=== PATIENT | male | born 1940 | race Caucasian/White ===

== ENCOUNTER → 2019-04-14 17:36 | Outpatient (CLI) | payer MEDICARE, BC, SELFPAY ==
[2019-04-14 19:22] LABS: Prostate Specific Antigen 4.66 ng/mL (0.10-4.00)
== END ==
PROVIDERS: PCP Internal Medicine; Referring Provider Urology; Visit Provider Urology
DX: N40.1 Benign prostatic hyperplasia with lower urinary tract symptoms (principal); R97.20 Elevated prostate specific antigen [PSA]
CPT/HCPCS: 36415; 84153

== ENCOUNTER → 2019-08-29 09:57 | Outpatient (CLI) | payer MEDICARE, BC, SELFPAY ==
[2019-08-29 11:34] LABS: Add Manual Diff / Slide Review NO; Basophils Absolute Auto 100 /uL (0-100); Basophils Percent Auto 0.9 % (0-2); Eosinophils Absolute Auto 100 /uL (0-450); Eosinophils Percent Auto 1.2 % (2-4); Hematocrit 41.2 % (41-53); Hemoglobin 14.3 g/dL (13.5-17.5); Lymphocytes Absolute Auto 1300 /uL (1100-4500); Mean Corpuscular HGB Conc 34.7 % (30-36); Mean Corpuscular Hemoglobin 32.7 PG (26-34); Monocytes Absolute Auto 600 /uL (0-900); Monocytes Percent Auto 8.7 % (3-14); Neutrophils Absolute Auto 4600 /uL (1500-7000); Neutrophils Percent Auto 69.2 % (50-75); Platelet Count 164 X10^3/uL (150-400); Red Blood Cell Count 4.38 X10^6/uL (4.5-5.9); Red Cell Distribution Width 13.3 % (11.6-14.8); White Blood Cell Count 6.6 X10^3/uL (4.5-11.0)
[2019-08-29 12:20] LABS: Alanine Aminotransferase 20 IU/L (<50); Albumin 4.2 g/dL (3.5-5.0); Alkaline Phosphatase 51 U/L (38-126); Aspartate Aminotransferase 35 IU/L (17-59); BUN Creatinine Ratio 17.6 (6-22); Bilirubin Total 0.8 mg/dL (0.2-1.3); Blood Urea Nitrogen 19 mg/dL (9-20); Calcium 9.5 mg/dL (8.4-10.2); Carbon Dioxide 25 mmol/L (22-32); Chloride 101 mmol/L (98-107); Cholesterol 139 mg/dL (140-199); Estimated Glomerular Filt Rate > 60.0 mL/min (>60); Globulin 2.1 g/dL (1.7-4.1); Glucose 92 mg/dL (80-110); HDL Cholesterol 56 mg/dL (40-60); HEMOLYSIS < 15 (0-50); LDL Cholesterol Calculated 51 mg/dL (<100); Potassium 4.3 mmol/L (3.4-5.1); Sodium 135 mmol/L (137-145); Total Protein 6.3 g/dL (6.3-8.2); Triglycerides 159 mg/dL (35-150)
== END ==
PROVIDERS: PCP Internal Medicine; Referring Provider Internal Medicine; Visit Provider Internal Medicine
DX: Z13.6 Encounter for screening for cardiovascular disorders (principal); I10 Essential (primary) hypertension; Z12.11 Encounter for screening for malignant neoplasm of colon
CPT/HCPCS: 36415; 80053; 80061; 85025

== ENCOUNTER → 2019-08-31 15:39 | Outpatient (CLI) | payer MEDICARE, BC, SELFPAY ==
[2019-08-31 19:05] LABS: Occult Blood 1 Negative (Negative); Occult Blood 2 Negative (Negative); Occult Blood 3 Negative (Negative)
== END ==
PROVIDERS: PCP Internal Medicine; Referring Provider Internal Medicine; Visit Provider Internal Medicine
DX: I10 Essential (primary) hypertension (principal); Z12.11 Encounter for screening for malignant neoplasm of colon; Z13.6 Encounter for screening for cardiovascular disorders
CPT/HCPCS: 82270

== ENCOUNTER → 2019-10-13 13:44 | Outpatient (CLI) | payer MEDICARE, BC, SELFPAY ==
[2019-10-13 16:25] LABS: Prostate Specific Antigen 2.06 ng/mL (0.10-4.00)
== END ==
PROVIDERS: PCP Internal Medicine; Referring Provider Urology; Visit Provider Urology
DX: R97.20 Elevated prostate specific antigen [PSA] (principal)
CPT/HCPCS: 36415; 84153

== ENCOUNTER → 2020-09-17 10:11 | Outpatient (CLI) | payer MEDICARE, BC, SELFPAY ==
[2020-09-17 11:46] LABS: Add Manual Diff / Slide Review NO; Basophils Absolute Auto 0 /uL (0-100); Basophils Percent Auto 0.6 % (0-2); Eosinophils Absolute Auto 100 /uL (0-450); Eosinophils Percent Auto 1.4 % (2-4); Hematocrit 41.7 % (41-53); Hemoglobin 14.2 g/dL (13.5-17.5); Lymphocytes Absolute Auto 1300 /uL (1100-4500); Lymphocytes Percent Auto 18.4 % (25-40); Mean Corpuscular HGB Conc 34.2 % (30-36); Mean Corpuscular Hemoglobin 32.3 PG (26-34); Mean Corpuscular Volume 94.4 fL (80-100); Monocytes Absolute Auto 700 /uL (0-900); Monocytes Percent Auto 9.2 % (3-14); Neutrophils Absolute Auto 5100 /uL (1500-7000); Neutrophils Percent Auto 70.4 % (50-75); Platelet Count 143 X10^3/uL (150-400); Red Blood Cell Count 4.41 X10^6/uL (4.5-5.9); White Blood Cell Count 7.3 X10^3/uL (4.5-11.0)
[2020-09-17 12:26] LABS: Alanine Aminotransferase 18 IU/L (<50); Albumin Globulin Ratio 1.5 (1.0-2.8); Alkaline Phosphatase 49 U/L (38-126); Aspartate Aminotransferase 34 IU/L (17-59); BUN Creatinine Ratio 19.2 (6-22); Bilirubin Total 0.7 mg/dL (0.2-1.3); Blood Urea Nitrogen 19 mg/dL (9-20); Calcium 9.6 mg/dL (8.4-10.2); Carbon Dioxide 25 mmol/L (22-32); Chloride 105 mmol/L (98-107); Cholesterol 162 mg/dL (140-199); Estimated Glomerular Filt Rate > 60.0 mL/min (>60); Globulin 2.6 g/dL (1.7-4.1); Glucose 119 mg/dL (80-110); HDL Cholesterol 54 mg/dL (40-60); HEMOLYSIS < 15 (0-50); LDL Cholesterol Calculated 86 mg/dL (<100); Potassium 3.9 mmol/L (3.4-5.1); Sodium 138 mmol/L (137-145); Total Protein 6.6 g/dL (6.3-8.2); Triglycerides 111 mg/dL (35-150)
== END ==
PROVIDERS: PCP Internal Medicine; Referring Provider Internal Medicine; Visit Provider Internal Medicine
DX: Z13.6 Encounter for screening for cardiovascular disorders (principal); Z79.899 Other long term (current) drug therapy
CPT/HCPCS: 36415; 80053; 80061; 85025

== ENCOUNTER → 2020-12-24 09:26 | Outpatient (CLI) | payer MEDICARE, BC, SELFPAY ==
[2020-12-24 13:26] LABS: COVID19 -Nasal RAPID Negative (Negative)
== END ==
PROVIDERS: PCP Internal Medicine; Visit Provider Nurse Practitioner Family
DX: Z20.822 Contact with and (suspected) exposure to COVID-19 (principal)
CPT/HCPCS: 87635

== ENCOUNTER → 2021-03-26 15:46 | Outpatient (CLI) | payer MEDICARE, BC, SELFPAY ==
--- NOTE | 2021-03-26 15:48 | DI.ECHO.S_ITS ---
[facility] +---------+ : : [address] : [place] [address] : : : : [id number] : : : : Phone: [phone]---------+ Echocardiogram Report + + :Name: SHEA CRUZ Study Date: 03/26/2021 Height: 64.5 in: :[facility] ReadingLocation: Weight: 135 lb : : Gender: Male BSA: 1.7 m2 : :: 1940 Age: 80 yrs BP: 158/85 mmHg: :Reason For Study: MITRAL VALVE PROLAPSE : :Ordering Physician: DHRUV FRIEDMANPerformed By: Louise Hicks : :Referring: DHRUV FRIEDMAN : + + Interpretation Summary The ejection fraction is estimated to be 55-60%. There is prolapse of the posterior mitral valve leaflet(s). There is severe mitral regurgitation. The mitral regurgitant jet is eccentrically directed. There is mild aortic regurgitation. There is mild tricuspid regurgitation. The right ventricular systolic pressure is estimated to be at least 24 mmHg based on an estimated right atrial pressure of 3 mm Hg. Procedure: A two-dimensional transthoracic echocardiogram with color flow and Doppler was performed. The study quality was technically adequate. There is no prior echocardiogram noted for this patient. The patient was in sinus bradycardia with heart rates between 57-60 bpm during the exam. Left Ventricle: The left ventricle is normal in size and wall thickness. Proximal septal thickening is noted. The ejection fraction is estimated to be 55-60%. There are no obvious focal wall motion abnormalities noted but poor endocardial definition reduces the sensitivity for the detection of such. Right Ventricle: The right ventricle is normal in size and function. Atria: The left atrium is moderately dilated. Right atrial size is normal. Mitral Valve: There is prolapse of the posterior mitral valve leaflet(s). There is severe mitral regurgitation. The mitral regurgitant jet is eccentrically directed. Aortic Valve: The aortic valve is trileaflet. The aortic valve opens well. There is no aortic valve stenosis. There is mild aortic regurgitation. Tricuspid Valve: The tricuspid valve is normal in structure and function. There is mild tricuspid regurgitation. The right ventricular systolic pressure is estimated to be at least 24 mmHg based on an estimated right atrial pressure of 3 mm Hg. Pulmonic Valve: The pulmonic valve is not well seen, but is grossly normal. There is mild to moderate pulmonic regurgitation. Great Vessels: The aortic root is borderline dilated. The ascending aorta is mildly enlarged. The IVC is of normal diameter and collapses greater than 50% with a sniff. This suggests a low right atrial pressure of 3 mm Hg. Pericardium/ Pleura There is no pericardial effusion. There is no pleural effusion. MMode/2D Measurements & Calculations LVIDd: 5.6 cm LVOT diam: 2.1 cm LVIDs: 3.4 cm Ao root diam: 3.9 cm FS: 39.5 % asc Aorta Diam: 3.8 cm IVSd: 0.61 cm Ao Arch Diam (Prox Trans): 2.8 cm LVPWd: 0.71 cm LV durham. diameter/BSA (cm/m^2): 3.4 LV sys. diameter/BSA (cm/m^2): 2.0 LA A2 area: 25.4 cm2 RA long axis: 5.0 cm LA A4 area: 20.6 cm2 RA area: 15.0 cm2 LA length (vol): 5.7 cm RA vol: 37.9 ml LA vol: 77.1 ml RA : 22.8 ml/m2 LA vol index: 46.3 ml/m2 IVC diam: 1.3 cm RVD1 (basal): 3.7 cm RVD2 (mid): 3.1 cm TAPSE: 1.8 cm Doppler Measurements & Calculations Ao V2 max: 111.1 cm/sec LVOT Max Petros: 104.7 cm/sec Ao V2 mean: 74.8 cm/sec LV V1 max P.4 mmHg Ao max P.9 mmHg LV V1 VTI: 17.8 cm Ao mean P.5 mmHg LORIE(I,D): 3.1 cm2 Ao V2 VTI: 19.7 cm LOIRE(V,D): 3.2 cm2 sev ratio: 0.90 LORIE indexed to BSA (cm^2/m^2): 1.9 AI P1/2t: 667.1 msec AI dec slope: 197.6 cm/sec2 MV E max petros: 101.7 cm/sec TR max petros: 230.2 cm/sec MV A max petros: 82.3 cm/sec TR max P.2 mmHg MV E/A: 1.2 PA V2 max: 100.1 cm/sec Med Peak E' Petros: 6.1 cm/sec PA V2 mean: 66.7 cm/sec E/E' med: 16.6 PA mean P.1 mmHg Lat Peak E' Petros: 8.4 cm/sec PA pr(Accel): 37.9 mmHg E/E' lat: 12.1 E/e' average: 14.3 MV dec time: 0.18 sec MR ERO: 0.37 cm2 MR PISA: 5.4 cm2 SV(LVOT): 61.0 ml MR flow rate: 253.6 cm3/sec MR PISA radius: 0.92 cm Reading Physician:10:27 AM
== END ==
PROVIDERS: PCP Internal Medicine; Referring Provider Internal Medicine; Visit Provider Internal Medicine
DX: I08.3 Combined rheumatic disorders of mitral, aortic and tricuspid valves (principal); I77.89 Other specified disorders of arteries and arterioles
CPT/HCPCS: 93306

== ENCOUNTER 2021-10-23 10:15 | Outpatient (RCR) | payer MEDICARE, BC, SELFPAY | END 2021-10-23 12:15 | LOC: CAR 10:15 | PROVIDERS: PCP Internal Medicine; Referring Provider Thoracic Surgery (Cardiothoracic Vascular Surgery); Visit Provider Thoracic Surgery (Cardiothoracic Vascular Surgery) | DX: Z98.890 Other specified postprocedural states (principal) | CPT/HCPCS: 93798 ==

== ENCOUNTER → 2022-01-05 09:41 | Outpatient (CLI) | payer MEDICARE, BC, SELFPAY ==
[2022-01-05 10:35] LABS: Add Manual Diff / Slide Review NO; Basophils Absolute Auto 100 /uL (0-100); Basophils Percent Auto 0.7 % (0-2); Eosinophils Absolute Auto 0 /uL (0-450); Eosinophils Percent Auto 0.4 % (2-4); Hematocrit 40.7 % (41-53); Hemoglobin 13.7 g/dL (13.5-17.5); Lymphocytes Absolute Auto 1000 /uL (1100-4500); Lymphocytes Percent Auto 9.4 % (25-40); Mean Corpuscular HGB Conc 33.7 % (30-36); Mean Corpuscular Hemoglobin 31.6 PG (26-34); Mean Corpuscular Volume 93.8 fL (80-100); Monocytes Absolute Auto 1400 /uL (0-900); Monocytes Percent Auto 13.5 % (3-14); Neutrophils Absolute Auto 7800 /uL (1500-7000); Platelet Count 151 X10^3/uL (150-400); Red Blood Cell Count 4.33 X10^6/uL (4.5-5.9); Red Cell Distribution Width 13.9 % (11.6-14.8); White Blood Cell Count 10.3 X10^3/uL (4.5-11.0)
[2022-01-05 11:28] LABS: Alanine Aminotransferase 25 IU/L (<50); Albumin 3.8 g/dL (3.5-5.0); Albumin Globulin Ratio 1.6 (1.0-2.8); Alkaline Phosphatase 66 U/L (38-126); Aspartate Aminotransferase 30 IU/L (17-59); Bilirubin Total 0.6 mg/dL (0.2-1.3); Blood Urea Nitrogen 18 mg/dL (9-20); Calcium 8.7 mg/dL (8.4-10.2); Carbon Dioxide 27 mmol/L (22-32); Chloride 103 mmol/L (98-107); Estimated Glomerular Filt Rate > 60 mL/min (>60); Globulin 2.4 g/dL (1.7-4.1); Glucose 132 mg/dL (80-110); HEMOLYSIS < 15 (0-50); Potassium 4.2 mmol/L (3.4-5.1); Sodium 138 mmol/L (137-145); Total Protein 6.2 g/dL (6.3-8.2)
== END ==
PROVIDERS: PCP Family Medicine; Referring Provider Physician Assistant; Visit Provider Physician Assistant
DX: U07.1 COVID-19 (principal)
CPT/HCPCS: 36415; 80053; 85025

== ENCOUNTER → 2022-05-28 07:58 | Outpatient (CLI) | payer MEDICARE, BC, SELFPAY ==
[2022-05-28 09:13] LABS: Cholesterol 169 mg/dL (140-199); HDL Cholesterol 57 mg/dL (40-60); LDL Cholesterol Calculated 92 mg/dL (<100); Triglycerides 102 mg/dL (35-150)
== END ==
PROVIDERS: PCP Family Medicine; Referring Provider Internal Medicine; Visit Provider Internal Medicine
DX: I10 Essential (primary) hypertension (principal)
CPT/HCPCS: 36415; 80061

== ENCOUNTER → 2022-10-05 08:01 | Outpatient (CLI) | payer MEDICARE, BC, SELFPAY ==
--- NOTE | 2022-10-05 | DI.ECHO.S_ITS ---
[facility]---------+ [facility] +---------+ : : [address] : : : : [id number] : : : : Phone: [phone] +---------+ Echocardiogram Report + + :Name: SHEA CRUZ Study Date: 10/05/2022 Height: 65 in : :[facility] ReadingLocation: Weight: 136 lb : : Gender: Male BSA: 1.7 m2 : :: 1940 Age: 82 yrs BP: 156/75 mmHg: :Reason For Study: Nonrheumatic Mitral Valve Regurgitation : :Ordering Physician: GAVI, : :ULYSSES Performed By: Jennifer Parker : :Referring: ULYSSES GATICA : + + Interpretation Summary Diastolic parameters suggest probable normal left ventricular diastolic function and normal filling pressures. Right ventricular systolic function is mildly reduced. The right ventricular systolic pressure is estimated to be at least 23 mmHg based on an estimated right atrial pressure of 3 mm Hg. The mitral valve is consistent with a mitral valve repair. There is trace mitral regurgitation. The mitral valve mean gradient is 3 mmHg. There is mild to moderate aortic regurgitation. Procedure: A two-dimensional transthoracic echocardiogram with color flow and Doppler was performed. The study quality was technically adequate. Comparison is made with the echocardiogram of 03/26/2021. The patient was in a bradycardic rhythm during the exam. Left Ventricle: The left ventricle is normal in size. The ejection fraction is estimated to be 55-60%. There are no obvious focal wall motion abnormalities noted but poor endocardial definition reduces the sensitivity for the detection of such. Diastolic parameters suggest probable normal left ventricular diastolic function and normal filling pressures. Right Ventricle: The right ventricle is normal size. Right ventricular systolic function is mildly reduced. Atria: Borderline left atrial enlargement. Right atrial size is normal. There is no Doppler evidence for an interatrial shunt. Mitral Valve: The mitral valve is consistent with a mitral valve repair. The mitral valve mean gradient is 3 mmHg. There is trace mitral regurgitation. Aortic Valve: The aortic valve is trileaflet. The aortic valve opens well. There is mild aortic valve sclerosis. There is no aortic valve stenosis. There is mild to moderate aortic regurgitation. Tricuspid Valve: The tricuspid valve is normal. There is no tricuspid stenosis. There is trace tricuspid regurgitation. The right ventricular systolic pressure is estimated to be at least 23 mmHg based on an estimated right atrial pressure of 3 mm Hg. Pulmonic Valve: The pulmonic valve is not well visualized. There is no pulmonic valvular stenosis. There is trace pulmonic regurgitation. Great Vessels: The aortic root is borderline dilated. The ascending aorta is at the upper limits of normal in size. The pulmonary artery is normal size. The IVC is of normal diameter and collapses greater than 50% with a sniff. This suggests a low right atrial pressure of 3 mm Hg. Pericardium/ Pleura There is no pericardial effusion. There is no pleural effusion. MMode/2D Measurements & Calculations LVIDd: 4.2 cm LVOT diam: 2.2 cm LVIDs: 2.8 cm Ao root diam: 3.9 cm FS: 33.3 % asc Aorta Diam: 3.8 cm IVSd: 0.90 cm LVPWd: 0.80 cm LV durham. diameter/BSA (cm/m^2): 2.5 LV sys. diameter/BSA (cm/m^2): 1.7 LA A2 area: 21.5 cm2 RA long axis: 4.4 cm LA A4 area: 16.2 cm2 RA area: 11.2 cm2 LA length (vol): 5.4 cm RA vol: 24.0 ml LA vol: 54.9 ml RA : 14.3 ml/m2 LA vol index: 32.7 ml/m2 RVD1 (basal): 3.5 cm LVLs ap4: 6.0 cm LVLd ap2: 7.0 cm TAPSE_phl: 1.3 cm LVLs ap2: 6.3 cm Doppler Measurements & Calculations Ao V2 max: 124.7 cm/sec LVOT Max Petros: 125.0 cm/sec Ao V2 mean: 86.5 cm/sec LV V1 max P.3 mmHg Ao max P.0 mmHg LV V1 VTI: 30.2 cm Ao mean P.7 mmHg LORIE(I,D): 3.7 cm2 Ao V2 VTI: 31.3 cm LORIE(V,D): 3.8 cm2 sev ratio: 0.96 LORIE indexed to BSA (cm^2/m^2): 2.2 MV E max petros: 110.0 cm/sec TR max petros: 224.5 cm/sec MV A max petros: 142.0 cm/sec TR max P.2 mmHg MV E/A: 0.77 PA V2 max: 108.0 cm/sec Med Peak E' Petros: 4.1 cm/sec PA V2 mean: 67.9 cm/sec E/E' med: 26.9 PA mean P.0 mmHg Lat Peak E' Petros: 9.3 cm/sec PA pr(Accel): 34.0 mmHg E/E' lat: 11.8 E/e' average: 19.3 MV dec time: 0.33 sec MVA(VTI): 2.0 cm2 MV V2 mean: 81.8 cm/sec SV(LVOT): 114.6 ml MV mean P.0 mmHg MV V2 VTI: 58.5 cm AV VR_phl: 1.0 LORIE(VTI)/BSA_phl: 2.2 Reading Physician:PM
== END ==
PROVIDERS: PCP Family Medicine; Referring Provider Internal Medicine; Visit Provider Internal Medicine
DX: I35.1 Nonrheumatic aortic (valve) insufficiency (principal)
CPT/HCPCS: 93306

== ENCOUNTER → 2023-06-24 10:02 | Outpatient (CLI) | payer MEDICARE, BC, SELFPAY ==
[2023-06-24 19:47] LABS: Alanine Aminotransferase 25 IU/L (<50); Albumin 4.1 g/dL (3.5-5.0); Albumin Globulin Ratio 1.6 (1.0-2.8); Alkaline Phosphatase 55 U/L (38-126); Aspartate Aminotransferase 37 IU/L (17-59); BUN Creatinine Ratio 17.2 (6-22); Bilirubin Total 0.9 mg/dL (0.2-1.3); Blood Urea Nitrogen 17 mg/dL (9-20); Calcium 9.1 mg/dL (8.4-10.2); Carbon Dioxide 25 mmol/L (22-32); Chloride 110 mmol/L (98-107); Cholesterol 162 mg/dL (140-199); Estimated Glomerular Filt Rate > 60 mL/min (>60); Globulin 2.5 g/dL (1.7-4.1); Glucose 99 mg/dL (80-110); HDL Cholesterol 56 mg/dL (40-60); HEMOLYSIS < 15 (0-50); LDL Cholesterol Calculated 87 mg/dL (<100); Potassium 4.6 mmol/L (3.4-5.1); Sodium 140 mmol/L (137-145); Total Protein 6.6 g/dL (6.3-8.2); Triglycerides 97 mg/dL (35-150)
== END ==
PROVIDERS: PCP Family Medicine; Referring Provider Family Medicine; Visit Provider Family Medicine
DX: Z00.00 Encounter for general adult medical examination without abnormal findings (principal); I10 Essential (primary) hypertension
CPT/HCPCS: 36415; 80053; 80061

== ENCOUNTER → 2024-04-18 14:18 | Outpatient (CLI) | payer MEDICARE, BC, SELFPAY ==
[2024-04-18 15:42] LABS: Influenza A - CEPHEID Flu A NEGATIVE (NEGATIVE); Influenza B - CEPHEID Flu B NEGATIVE (NEGATIVE); Respiratory Syncytial Virus Negative (Negative)
[2024-04-18 17:33] LABS: COVID-19 CEPHEID 4-PLEX PCR Negative (Negative)
== END ==
PROVIDERS: PCP Family Medicine; Visit Provider Family Medicine
DX: R05.9 Cough, unspecified (principal)
CPT/HCPCS: 0241U

== ENCOUNTER → 2024-07-31 | Outpatient (CLI) | payer MEDICARE, BC, SELFPAY ==
--- NOTE | 2024-07-31 12:39 | DI.ECHO.S_ITS ---
[facility]---------+ [facility] : : [address] : [address] [address] : : [id number] : : Phone: [phone] Echocardiogram Report + + :Name: SHEA CRUZ Study Date: 07/31/2024 Height: 64 in : :[facility] ReadingLocation: Weight: 138 lb : : Gender: Male BSA: 1.7 m2 : :: 1940 Age: 84 yrs BP: 149/77 mmHg: :Reason For Study: Mitral Valve - Annulus Repair/Replacement : :Ordering Physician: GAVI, : :ULYSSES Performed By: Betsy Mijares : :Referring: ULYSSES GATICA : + + Interpretation Summary The ejection fraction is estimated to be 55-60%. Grade II diastolic dysfunction. The right ventricle grossly appears normal in size with probable normal systolic function. The right ventricular systolic pressure is estimated to be at least 29 mmHg based on an estimated right atrial pressure of 3 mm Hg. There is trace mitral regurgitation. There is mild to moderate aortic regurgitation. No significant change from last study, done in September 2022. Procedure: A two-dimensional transthoracic echocardiogram with color flow and Doppler was performed. The study quality was technically adequate. Comparison is made with the echocardiogram of 10-05-22. The heart rate ranged between 53-64 bpm during the study. Left Ventricle: The left ventricle is normal in size and wall thickness. The ejection fraction is estimated to be 55-60%. Left ventricular wall motion is normal. Grade II diastolic dysfunction. Right Ventricle: The right ventricle grossly appears normal in size with probable normal systolic function. Atria: The left atrium is mildly dilated. Right atrial size is normal. The interatrial septum grossly appears intact with no obvious evidence for an atrial septal defect. Mitral Valve: The mitral valve leaflets appear mildly thickened, but open well. A mitral valve clip is present. Bioprosthesis leaflets are thickened but move well. There is trace mitral regurgitation. Aortic Valve: The aortic valve is trileaflet. The aortic valve opens well. There is mild to moderate aortic regurgitation. Tricuspid Valve: The tricuspid valve leaflets are thin and pliable. There is mild tricuspid regurgitation. The right ventricular systolic pressure is estimated to be at least 29 mmHg based on an estimated right atrial pressure of 3 mm Hg. Pulmonic Valve: The pulmonic valve is not well seen, but is grossly normal. There is trace pulmonic regurgitation. Great Vessels: The aortic root is borderline dilated. The ascending aorta is normal in size. The aortic arch is normal in size. The IVC is of normal diameter and collapses greater than 50% with a sniff. This suggests a low right atrial pressure of 3 mm Hg. Pericardium/ Pleura There is no pericardial effusion. There is no pleural effusion. MMode/2D Measurements & Calculations LVIDd: 4.7 cm LVOT diam: 2.2 cm LVIDs: 2.8 cm Ao root diam: 3.9 cm FS: 39.1 % asc Aorta Diam: 3.7 cm EPSS: 0.71 cm Ao Arch Diam (Prox Trans): 2.9 cm IVSd: 0.81 cm LVPWd: 0.88 cm LV durham. diameter/BSA (cm/m^2): 2.8 LV sys. diameter/BSA (cm/m^2): 1.7 LA A2 area: 19.7 cm2 RA long axis: 5.0 cm LA A4 area: 19.8 cm2 RA area: 14.5 cm2 LA length (vol): 5.0 cm RA vol: 35.3 ml LA vol: 66.7 ml RA : 21.1 ml/m2 LA vol index: 39.9 ml/m2 IVC diam: 1.3 cm TAPSE: 1.7 cm Doppler Measurements & Calculations Ao V2 max: 130.8 cm/sec LVOT Max Petros: 106.8 cm/sec Ao V2 mean: 91.5 cm/sec LV V1 max P.6 mmHg Ao max P.8 mmHg LV V1 VTI: 23.7 cm Ao mean P.7 mmHg LORIE(I,D): 3.1 cm2 Ao V2 VTI: 30.0 cm LORIE(V,D): 3.2 cm2 sev ratio: 0.79 LORIE indexed to BSA (cm^2/m^2): 1.9 AI P1/2t: 688.5 msec AI dec slope: 181.6 cm/sec2 MV E max petros: 115.9 cm/sec TR max petros: 255.3 cm/sec MV A max petros: 138.1 cm/sec TR max P.1 mmHg MV E/A: 0.84 PA V2 max: 65.6 cm/sec Med Peak E' Petros: 4.9 cm/sec PA V2 mean: 43.8 cm/sec E/E' med: 23.5 PA mean P.90 mmHg Lat Peak E' Petros: 9.7 cm/sec PA pr(Accel): 8.8 mmHg E/E' lat: 12.0 E/e' average: 17.7 MV dec time: 0.29 sec SVLVOT): 93.8 ml Reading Physician:05:21 PM
== END ==
LOC: ECHO 12:37
PROVIDERS: PCP Family Medicine; Referring Provider Internal Medicine; Visit Provider Internal Medicine
DX: I08.2 Rheumatic disorders of both aortic and tricuspid valves (principal)
CPT/HCPCS: 93306

== ENCOUNTER → 2024-08-08 07:50 | Outpatient (CLI) | payer MEDICARE, BC, SELFPAY ==
[2024-08-08 09:06] LABS: Alanine Aminotransferase 26 IU/L (<50); Albumin 4.2 g/dL (3.5-5.0); Albumin Globulin Ratio 1.8 (1.0-2.8); Alkaline Phosphatase 58 U/L (38-126); Blood Urea Nitrogen 20 mg/dL (9-20); Calcium 9.3 mg/dL (8.4-10.2); Carbon Dioxide 20 mmol/L (22-32); Chloride 107 mmol/L (98-107); Cholesterol 163 mg/dL (140-199); Estimated Glomerular Filt Rate > 60 mL/min (>60); Globulin 2.4 g/dL (1.7-4.1); Glucose 105 mg/dL (70-99); HDL Cholesterol 51 mg/dL (40-60); HEMOLYSIS < 15 (0-50); Potassium 4.4 mmol/L (3.4-5.1); Sodium 137 mmol/L (137-145); Total Protein 6.6 g/dL (6.3-8.2); Triglycerides 114 mg/dL (35-150)
== END ==
PROVIDERS: PCP Family Medicine; Referring Provider Family Medicine; Visit Provider Family Medicine
DX: Z00.00 Encounter for general adult medical examination without abnormal findings (principal); I50.9 Heart failure, unspecified; I11.0 Hypertensive heart disease with heart failure
CPT/HCPCS: 36415; 80053; 80061